=== PATIENT | female | born 1945 | race Hispanic/Latino ===

== ENCOUNTER 2017-08-26 10:33 | Outpatient (CLI) | payer MEDICARE, OTHER ==
--- NOTE | 2017-08-26 15:52 | Mammography Report ---
BILATERAL DIGITAL SCREENING MAMMOGRAM with CAD: 08/26/17 10:33:00 CLINICAL: Routine screening. COMPARISON:11/30/15 FINDINGS: The breasts are mostly fatty with a few scattered bilateral fibroglandular densities. Stable fibroglandular pattern with low-density circumscribed right retroareolar masses. No new mass, architectural distortion or suspicious calcifications. IMPRESSION: No mammographic evidence of malignancy. BI-RADS CATEGORY: 2 -- Benign RECOMMENDATION: Routine mammographic screening in one year. COMMENT: Patient follow-up letters are generated by our [employer] application.
== END 2017-08-26 10:34 | disposition home or self-care (01) ==
LOC: SPVWC 10:33
PROVIDERS: ATTEND Obstetrics & Gynecology
DX: Z12.31 Encounter for screening mammogram for malignant neoplasm of breast (principal)
CPT/HCPCS: 77067; G0202

== ENCOUNTER 2017-12-11 10:01 | Outpatient (CLI) | payer MEDICARE, OTHER ==
--- NOTE | 2017-12-12 08:53 | Mammography Report ---
BONE DEXA:12/11/17 10:01:00 CLINICAL: Postmenopausal. No comparison. TECHNIQUE: Two site bone DEXA performed on an Hologic scanner. FINDINGS: The average BMD of the lumbar spine L1-L4 is 0.987g/cm squared with a T-score of -0.5 and a Z-score of +1.6. The average BMD of the left hip is 0.867g/cm squared with a T-score of -0.6 and a Z-score of +1.0. The left femoral neck BMD is 0.732g/cm squared to T score of -1.1 and Z score of +0.8 IMPRESSION: 1. WHO classification: Normal with average fracture risk based on lumbar spine measurements. 2. WHO classification: Osteopenia with increased fracture risk based on left femoral neck measurements. RECOMMENDATION: Clinical correlation and routine screening. DEFINITIONS: BMD = Bone Mineral Density T-score = BMD related to mean peak bone mass of young adult (mean expressed in Standard Deviation) Z-score = Age matched BMD expressed in SD World Health Organization (WHO) Diagnostic Criteria Normal T-score > -1 SD Osteopenia T-score between -1 and -2.4 SD Osteoporosis T-score -2.5 SD or below NOTE: BMD is not the only risk factor for fracture. One should also consider factors such as the patient's age, risk of falling, previous osteoporotic fracture, family history of osteoporotic fractures, current smoker, and low body weight. Z-scores are not calculated if >80 years of age.
== END 2017-12-11 10:02 | disposition home or self-care (01) ==
LOC: SPVWC 10:01
PROVIDERS: ATTEND Nurse Practitioner
DX: M85.88 Other specified disorders of bone density and structure, other site (principal); Z78.0 Asymptomatic menopausal state
CPT/HCPCS: 77080

== ENCOUNTER 2018-06-23 09:36 | Outpatient (CLI) | payer MEDICARE, OTHER ==
--- NOTE | 2018-06-23 12:07 | XRay Report ---
ABDOMINAL SERIES WITH CXR THREE VIEWS: 06/23/18 CLINICAL: Acute abdominal pain. FINDINGS: Supine upright views demonstrate a normal bowel gas pattern with a moderately large line of stool throughout the colon and in the rectum. No distended bowel or air-fluid levels. No pneumoperitoneum. The right upper quadrant calcification may be in the lower pole of the right kidney. It seems a bit low for a gallstone. Left upper quadrant calcifications are probably granulomas in the spleen. Phleboliths in the pelvis. No mass or suspicious calcifications.Mild dextroscoliosis and degenerative changes in the spine. The chest is normal.. IMPRESSION: 1. Possible right renal calculus or gallbladder calculus. 2. No bowel obstruction or evidence of perforation. 3. Suspect old granulomatous disease with calcified granulomas in the spleen.
== END 2018-06-23 09:37 | disposition home or self-care (01) ==
LOC: SPVIMAG 09:36
PROVIDERS: ATTEND Internal Medicine
DX: R10.9 Unspecified abdominal pain (principal)
CPT/HCPCS: 74021

== ENCOUNTER 2019-12-03 09:05 | Outpatient (CLI) | payer MEDICARE, OTHER ==
--- NOTE | 2019-12-03 09:47 | Mammography Report ---
DIGITAL SCREENING MAMMOGRAM WITH CAD, 12/03/2019 INDICATION: Routine screening mammography. TECHNIQUE: Digital bilateral 2D mammography was obtained in the craniocaudal and mediolateral obliq ue projections. This examination was interpreted with the benefit of Computer-Aided Detection analysi s. COMPARISON: 11/30/2015 FINDINGS: Breast Density: The breasts are almost entirely fatty. There is no evidence of dominant mass, suspicious calcifications or architectural distortion in eithe r breast. IMPRESSION: No mammographic evidence of malignancy. Follow up recommendation: Routine yearly BI-RADS Category 1: Negative. A "normal" or negative report should not discourage follow up or biopsy of a clinically significant f inding. A written summary of these findings will be mailed to the patient. The patient will be entered into a mammography reporting system which will generate a reminder letter for the patient's next appointmen t at the appropriate interval. The [employer] recommends yearly mammograms starting at age 40 and continuing as l derrek as a woman is in good health. Breast MRI is recommended for women with an approximate 20-25% or greater lifetime risk of breast cancer, including women with a strong family history of breast or ova kaitlynn cancer or who have been treated for Hodgkin's disease. Signer Name: Jhonny Trinidad MD Signed: 12/03/2019 9:43 AM Workstation Name: [id number]
== END 2019-12-03 09:06 | disposition home or self-care (01) ==
LOC: SPVWC 09:05
PROVIDERS: ATTEND Obstetrics & Gynecology
DX: Z12.31 Encounter for screening mammogram for malignant neoplasm of breast (principal); N64.89 Other specified disorders of breast
CPT/HCPCS: 77067